=== PATIENT | male | born 1960 | race Caucasian/White ===

== ENCOUNTER → 2019-10-02 | Outpatient (CLI) | payer OTHER ==
[2019-10-02 08:54] LABS: ALT 27 U/L (4-49); AST 26 U/L (17-59); African American GFR (CKD) >90 (>60 ml/min/1.73 sqM); Albumin 4.4 g/dL (3.5-5.0); Albumin/Globulin Ratio 1.3; Alkaline Phosphatase 68 U/L (38-126); Anion Gap 10 mmol/L; Blood Urea Nitrogen 17 mg/dL (9-20); Calcium 9.8 mg/dL (8.4-10.2); Carbon Dioxide 29 mmol/L (22-30); Chloride 103 mmol/L (98-107); Cholesterol 228 mg/dL (<200); Globulin 3.3 g/dL; Glucose 99 mg/dL (74-99); HDL Cholesterol 27 mg/dL (40-60); LDL Cholesterol,Calculated 178 mg/dL (0-99); Non-African American GFR(CKD) 82 (>60 ml/min/1.73 sqM); Potassium 5.1 mmol/L (3.5-5.1); Sodium 142 mmol/L (137-145); Total Protein 7.7 g/dL (6.3-8.2); Triglycerides 117 mg/dL (<150)
== END | disposition home or self-care (01) ==
LOC: MERGE 08:09 → LABWHC1 08:09
PROVIDERS: ATTEND Internal Medicine Interventional Cardiology
DX: E78.2 Mixed hyperlipidemia (principal)
CPT/HCPCS: 36415; 80053; 80061

== ENCOUNTER 2019-10-10 06:35 | Day surgery (SDC) | payer OTHER ==
[2019-10-08 11:36] VITALS: BMI 25.1
[~2019-10-10 06:35] MED LIST: ALPRAZolam 0.25 MG TAB PO PRN; ALPRAZolam 0.5 MG TAB PO PRN; ASPIRIN 325 MG TAB PO STA; NITROGLYCERIN SL TABS 0.4 MG TAB SUBLINGUAL PRN; SODIUM CHLORIDE 0.9% 1,000 ML in EMPTY BAG 1 BAG IV ONE
[2019-10-10 07:08] VITALS: RESP 16; TEMP 97.8
[2019-10-10 07:12] LABS: Basophils % (A) 0 %; Eosinophils # (A) 0.4 k/uL (0-0.7); Eosinophils % (A) 5 %; HCT 52.1 % (39.0-53.0); HGB 18.1 gm/dL (13.0-17.5); Lymphocytes # (A) 1.1 k/uL (1.0-4.8); Lymphocytes % (A) 14 %; MCH 33.3 pg (25.0-35.0); MCHC 34.6 g/dL (31.0-37.0); MCV 96.1 fL (80.0-100.0); Mean Platelet Volume 6.6; Monocytes # (A) 0.6 k/uL (0-1.0); Monocytes % (A) 8 %; Neutrophils # (A) 5.4 k/uL (1.3-7.7); Neutrophils % (A) 72 %; Platelet Count 303 k/uL (150-450); RBC 5.42 m/uL (4.30-5.90); WBC 7.5 k/uL (3.8-10.6)
[2019-10-10] MEDS ORDERED: HEPARIN SODIUM 1,000 UN/ML (10ML VL) ONE (07:30)
[2019-10-10] MEDS ORDERED: VERAPAMIL 2.5 MG/ML 2 ML AMP ONE (07:30)
[2019-10-10] MEDS ORDERED: fentaNYL (PF) 50 MCG/ML 2 ML AMP ONE (07:30)
[2019-10-10] MEDS ORDERED: LIDOCAINE 1% INJ 10MG/ML (20 ML MDV) ONE (07:30)
[2019-10-10] MEDS ORDERED: fentaNYL (PF) 50 MCG/ML 2 ML AMP IV ONE (07:35)
[2019-10-10] MEDS: LIDOCAINE 1% INJ 10MG/ML (20 ML MDV) SQ ONE ×2 (07:39→07:55)
[2019-10-10] MEDS ORDERED: MIDAZOLAM 2 MG/2 ML VIAL IVP ONE (07:41)
[2019-10-10] MEDS ORDERED: IOPAMIDOL-370 100ML BTL INJ ONE ×2 (08:05)
[2019-10-10] MEDS ORDERED: IOPAMIDOL-370 125ML BTL INJ ONE (08:08)
[2019-10-10] MEDS ORDERED: RX INFO: IV CONTRAST WAS GIVEN 1 EACH MISC MISCELLANE PRN (08:27)
[2019-10-10] MEDS ORDERED: SODIUM CHLORIDE 0.9% 1,000 ML IV SCH (08:30)
--- NOTE | 2019-10-10 09:03 | CC ---
CARDIAC CATHETERIZATION REPORT Mr. Bar is a 58-year-old male with known history of coronary artery disease, status post myocardial infarction and stenting done at [facility] in 2016. He received multiple stents at that time as well as stenting of his lower extremities that has not been followed by his dredge pipeman and presented recently with symptoms of chest discomfort and intermittent claudication. In view of his prior history and his presentation, recommendation was made regarding cardiac catheterization. The procedure as well as the risks and the complications were discussed with the patient who is in full understanding and agreement. PROCEDURE: Patient was brought to mobile home laborer in a fasting semi-sedated state after receiving fentanyl Benadryl and achieving moderate conscious sedated state. The right radial artery was cannulized but because of severe vasospasm, could not advance the wire. At that time using Xylocaine anesthesia and 6-Luxembourger sheath was introduced in the left femoral artery. Selective right and left coronary angiography was performed using 6- Luxembourger 4 bend, right and left Janet catheter. Multiple views of the coronary artery including hemiaxial views were obtained. Following that 6-Luxembourger tight pigtail catheter was introduced in the left ventricle and a 30-degree PETERS view of the left ventricle was obtained. Following that, an aortogram in the lower abdomen was obtained. Following that, catheter and sheaths were removed. Hemostasis was obtained with compression of the left groin. There was no immediate complication. Patient was returned to his room in stable condition. FINDING: LEFT MAIN: This is a short size vessel bifurcating in the left circumflex, left anterior descending artery. Left main coronary artery has no evidence of obstructive disease. LEFT ANTERIOR DESCENDING ARTERY: This is a large-sized vessel reaching to the apex with a wraparound apex segment giving rise to a large diagonal branch. The left anterior descending artery at the takeoff of the diagonal branch has a 20% to 30%. The takeoff of the diagonal branch has a 60% to 70% plaque. The rest of the vessel has no high- grade stenosis. LEFT CIRCUMFLEX: This is a nondominant large vessel giving rise to 2 obtuse marginal branches. The first one is large in caliber. The proximal segment of that obtuse marginal branch has a stent that is patent. There is mild diffuse intimal disease of 20% in the vessel without any evidence of high-grade stenosis. RIGHT CORONARY ARTERY: This is a large dominant vessel bifurcating distally PDA and posterolateral segment and branches. The mid segment has multiple stents. The ostium of the right coronary artery has 30% to 40% plaque. The stented segment has mild intimal restenosis of 30%. The rest of the vessel has no high-grade stenosis. LEFT VENTRICULOGRAM: Left ventriculogram was performed in 30-degree PETERS view and revealed inferobasal hypokinesis. Ejection fraction is about 45%. There was no significant mitral regurgitation. AORTOGRAM: Lower abdomen aortogram revealed a patent stent of the left iliac with totally occluded stent of the right iliac with collateral reconstituting the femoral artery proximal to the bifurcation. HEMODYNAMICS: There was no gradient across the aortic valve. The left ventricular end-diastolic pressure was 10-12 mmHg. CONCLUSION: 1. Patent stent to the right coronary artery and to the left circumflex. 2. Mild to moderate triple-vessel coronary artery disease. 3. Mildly impaired left ventricular systolic function. 4. Totally occluded right iliac stent. RECOMMENDATION: We will continue medical therapy with aggressive coronary risk modification. The patient will be evaluated by Dr. Priest for possibility of recanalizing the right iliac stent. Those findings and recommendation were discussed with the patient and his family and they are in full understanding and agreement. MMODL / IJN: [id number] /
[2019-10-10 12:01] VITALS: BP 111/74; PULSE 70
[2019-10-10] MEDS ORDERED: LISINOPRIL 10 MG TAB PO SCH (21:00)
[2019-10-10] MEDS ORDERED: ATORVASTATIN 80 MG TAB PO SCH (21:00)
[2019-10-10] MEDS ORDERED: METOPROLOL SUCCINATE (ER) 50 MG TAB.ER.24H PO SCH (21:00)
[2019-10-11] MEDS ORDERED: ASPIRIN 81 MG PO SCH (09:00)
== END 2019-10-10 14:50 | disposition home or self-care (01) ==
LOC: CATHCVL 06:35
PROVIDERS: ATTEND Internal Medicine Interventional Cardiology
DX: I25.110 Atherosclerotic heart disease of native coronary artery with unstable angina pectoris (principal); T82.897A Other specified complication of cardiac prosthetic devices, implants and grafts, initial encounter; I11.9 Hypertensive heart disease without heart failure; I73.9 Peripheral vascular disease, unspecified; E78.2 Mixed hyperlipidemia; E78.00 Pure hypercholesterolemia, unspecified; I25.2 Old myocardial infarction; F17.210 Nicotine dependence, cigarettes, uncomplicated; Z91.14 Patient's other noncompliance with medication regimen; Z95.5 Presence of coronary angioplasty implant and graft; Z95.820 Peripheral vascular angioplasty status with implants and grafts; Z79.82 Long term (current) use of aspirin; Z79.899 Other long term (current) drug therapy; Z79.02 Long term (current) use of antithrombotics/antiplatelets
CPT/HCPCS: 93458; 85025; C1769 ×3; C1894 ×2; J2250; J2001; J3010; Q9967 ×2

== ENCOUNTER → 2019-12-23 | Outpatient (CLI) | payer OTHER ==
[2019-12-23 18:39] LABS: African American GFR (CKD) 63.7 (60.0-200.0); Albumin 4.6 g/dL (3.80-4.90); Albumin/Globulin Ratio 2.19 (1.60-3.17); Anion Gap 7.3 mmol/L (4.00-12.00); BUN/Creat Ratio 20.71 Ratio (12.00-20.00); Calcium 9.5 mg/dL (8.7-10.3); Carbon Dioxide 26.7 mmol/L (21.6-31.8); Chol/HDL Ratio 3.71; Globulin 2.1 g/dL (1.6-3.3); LDL Cholesterol,Calculated 106.6 mg/dL (0.0-131.0); Potassium 4.9 mmol/L (3.5-5.5); Total Bilirubin 0.7 mg/dL (0.3-1.2); Total Protein 6.7 g/dL (6.2-8.2); VLDL Calculation 15.4 mg/dL (5.00-40.00)
== END | disposition home or self-care (01) ==
LOC: LABWHC1 12:14
PROVIDERS: ATTEND Internal Medicine Interventional Cardiology
DX: U07.1 COVID-19 (principal); E78.2 Mixed hyperlipidemia
CPT/HCPCS: 36415; 80053; 80061; 87635

== ENCOUNTER 2019-12-25 06:11 | Day surgery (SDC) | payer OTHER ==
[2019-12-24 08:37] VITALS: BMI 26.7
[~2019-12-25 06:11] MED LIST changes: -ALPRAZolam 0.5 MG TAB PO PRN; -ASPIRIN 325 MG TAB PO STA; -NITROGLYCERIN SL TABS 0.4 MG TAB SUBLINGUAL PRN
[2019-12-25 06:45] LABS: Basophils % (A) 1 %; Eosinophils # (A) 0.5 k/uL (0-0.7); Eosinophils % (A) 7 %; HCT 49.9 % (39.0-53.0); HGB 16.4 gm/dL (13.0-17.5); Lymphocytes # (A) 1.3 k/uL (1.0-4.8); Lymphocytes % (A) 19 %; MCH 32.5 pg (25.0-35.0); MCHC 32.8 g/dL (31.0-37.0); MCV 99.2 fL (80.0-100.0); Mean Platelet Volume 6.7; Monocytes # (A) 0.5 k/uL (0-1.0); Monocytes % (A) 7 %; Neutrophils # (A) 4.5 k/uL (1.3-7.7); Neutrophils % (A) 64 %; Platelet Count 224 k/uL (150-450); RBC 5.03 m/uL (4.30-5.90); RDW 13.2 % (11.5-15.5)
[2019-12-25 06:57] LABS: Potassium 4.2 mmol/L (3.5-5.1)
[2019-12-25] MEDS ORDERED: ASPIRIN 325 MG TAB PO ONE (07:00)
[2019-12-25] MEDS ORDERED: MIDAZOLAM 2 MG/2 ML VIAL IV ONE (07:38)
[2019-12-25] MEDS ORDERED: LIDOCAINE 1% INJ 10MG/ML (20 ML MDV) SQ ONE (07:39)
[2019-12-25] MEDS: HEPARIN SODIUM 1,000 UN/ML (10ML VL) IV ONE ×2 (07:44→08:01)
[2019-12-25] MEDS ORDERED: CLOPIDOGREL 75 MG TAB PO ONE (08:42)
[2019-12-25] MEDS ORDERED: IOPAMIDOL-250 100ML BTL INTRAARTER ONE (08:43)
[2019-12-25] MEDS ORDERED: SODIUM CHLORIDE 0.9% 1,000 ML in EMPTY BAG 1 BAG IV SCH (09:00)
[2019-12-25] MEDS ORDERED: CLOPIDOGREL 75 MG TAB PO SCH (09:00)
--- NOTE | 2019-12-25 09:14 | P.PCN ---
Date of Procedure: 12/25/19 Operative Findings: PERCUTANEOUS PERIPHERAL ARTERIAL INTERVENTION Performing physician: Ciro Priest MD, [facility] Procedure performed: 1. Successful stenting of the right common iliac artery using 8.0 x 59 mm and 9.0 x 29 mm Omnilink balloon expandable stents with an excellent angiographic results and reduction of stenosis from 100% to 0% 2. Intravascular ultrasound (IVUS) of the aorta, right common iliac artery, and right external iliac artery 3. Selective angiogram of the right common iliac artery, external iliac artery, and common femoral artery Indication: This is a very pleasant 59-year-old gentleman with coronary artery disease as well as peripheral arterial disease who underwent in the past stenting of the right and left common iliac arteries, performed in [facility], was experi encing right lower extremities intermittent claudication and underwent an angiogram and that revealed occluded right common iliac artery which seems to be in-stent occlusion. He was brought today to undergo a SHOTGUN SHELL ASSEMBLY MACHINE OPERATOR. Approach: Right common femoral artery Complication: None Level of sedation: Moderate with a sedation length of 62 minutes Procedure description: After obtaining an informed consent the patient was brought to the cardiac confectionery laboratory manager. The right common femoral artery was cannulated using micropuncture technique, the micropuncture wire passed easily then I placed the micropuncture sheath over the micropuncture wire was subsequently I did exchange the micropuncture sheath into a 23 cm bright tip 6-Cayman Islander sheath using an 035 wire and that wire was super core wire. At that point anticoagulation was initiated using heparin. At the beginning of the procedure the patient was given a total of 5000 use of heparin and at the middle of the procedure additional 3000 use of heparin given with continuous ACT monitoring throughout the procedure. 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 The CXR I was advanced over the wire to the aorta were I did an aortogram to prove that I was in the true lumen. Subsequently I did exchange my 035 wire into an 014 Hi-[address] wire using an 035 CXR catheter. I did perform intravascular ultrasound of the aorta as well as a right common iliac artery and right external iliac artery. The ultrasound of the right common iliac artery revealed chronic thrombus with the stent being slightly undersized. The ultrasound of the right external iliac artery showed mild plaque without any flow-limiting lesions. Also by IVUS I was able to obtain an diameter of the right common iliac artery around 8.5 mm. Because of that I did balloon angioplasty in the beginning using 6 mm balloon and subsequently I placed 8 mm x 59 mm Omnilink balloon expandable stent where the stent was positioned under fluoroscopy guidance and it was deployed under 16 gal. The following angiogram showed an area distal to the stent seems to be hazy and I was concerned about dissection. IVUS was applied again and indeed did reveal large dissection distal to the distal edge of the stent. I decided to cover that with the stent and I decided to place the stent just above the take off of the right internal iliac artery. At that point I deployed 9.0 x 29 mm another Omnilink balloon expandable stent where the stent again was positioned under fluoroscopy guidance was few millimeter overlap between the stent and the previously stents. I deployed the second stent under 16 gal as well. The area of overlap between the 2 stents was dilated using the 9 mm balloon. Then the previous/first the stent was also postdilated using the 9 mm balloon. The final angiogram showed excellent angiographic results and the procedure was completed without any complication After that I did exchange my 23 cm 6-Cayman Islander sheath into an 11 cm 6-Cayman Islander sheath using 035 wire. By the end I did selective right common femoral artery angiogram. The procedure was completed without any complication Postprocedure management: 1. Consider oral anticoagulation and stented off Plavix in view of the patient previously occluded the iliac stent 2. Aggressive cholesterol control 3. Follow-up with Dr. Rosen
--- NOTE | 2019-12-25 09:58 | IR ---
Fluoroscopy HISTORY: Peripheral vascular occlusive disease 12.1 minutes fluoroscopy time supplied to the referring clinician. 389 intraoperative C-arm images d ocument the procedure. See dictated report from cardiology.
[2019-12-25] MEDS ORDERED: LISINOPRIL 10 MG TAB PO SCH (21:00)
[2019-12-25] MEDS ORDERED: METOPROLOL SUCCINATE (ER) 50 MG TAB.ER.24H PO SCH (21:00)
[2019-12-25] MEDS ORDERED: ATORVASTATIN 80 MG TAB PO SCH (21:00)
--- NOTE | 2019-12-26 07:25 | P.DS ---
Providers Date of admission: December 242019 Attending physician: Ciro Priest Primary care physician: Suresh [facility] Course: This is a pleasant 59-year-old gentleman who underwent yesterday successful crossing chronic total occlusion of the right iliac along with successful stenting with an excellent angiographic results and without any complication from right groin approach. The patient was seen this morning. He is asymptomatic. He is going to be discharged home. He is going to be discharged on dual antiplatelet therapy and statin. Plan - Discharge Summary Discharge Rx Participant: No New Discharge Prescriptions: New Clopidogrel [Plavix] 75 mg PO DAILY #90 tab Continue Lisinopril [Zestril] 10 mg PO HS Metoprolol Succinate [Toprol XL] 50 mg PO HS Atorvastatin [Lipitor] 80 mg PO HS Aspirin [Adult Low Dose Aspirin EC] 81 mg PO DAILY Discharge Medication List Aspirin [Adult Low Dose Aspirin EC] 81 mg PO DAILY 10/08/19 [History] Atorvastatin [Lipitor] 80 mg PO HS 10/08/19 [History] Lisinopril [Zestril] 10 mg PO HS 10/08/19 [History] Metoprolol Succinate [Toprol XL] 50 mg PO HS 10/08/19 [History] Clopidogrel [Plavix] 75 mg PO DAILY #90 tab 12/26/19 [Rx] Follow up Appointment(s)/Referral(s): Ciro Priest MD [STAFF PHYSICIAN] - 1 Week
[2019-12-26 07:36] LABS: Basophils % (A) 0 %; Eosinophils # (A) 0.3 k/uL (0-0.7); Eosinophils % (A) 4 %; HCT 47.8 % (39.0-53.0); HGB 15.6 gm/dL (13.0-17.5); Lymphocytes # (A) 0.9 k/uL (1.0-4.8); Lymphocytes % (A) 11 %; MCH 32.5 pg (25.0-35.0); MCHC 32.6 g/dL (31.0-37.0); MCV 99.9 fL (80.0-100.0); Mean Platelet Volume 6.5; Monocytes # (A) 0.6 k/uL (0-1.0); Monocytes % (A) 8 %; Neutrophils # (A) 6.3 k/uL (1.3-7.7); Neutrophils % (A) 75 %; Platelet Count 201 k/uL (150-450); RBC 4.78 m/uL (4.30-5.90); RDW 13.2 % (11.5-15.5); WBC 8.4 k/uL (3.8-10.6)
[2019-12-26 08:02] LABS: African American GFR (CKD) >90 (>60 ml/min/1.73 sqM); Anion Gap 4 mmol/L; Blood Urea Nitrogen 17 mg/dL (9-20); Carbon Dioxide 25 mmol/L (22-30); Chloride 107 mmol/L (98-107); Glucose 89 mg/dL (74-99); Non-African American GFR(CKD) >90 (>60 ml/min/1.73 sqM); Potassium 4.5 mmol/L (3.5-5.1); Sodium 136 mmol/L (137-145)
[2019-12-26 08:43] VITALS: BP 116/69; PULSE 77; RESP 16; TEMP 97
[2019-12-26] MEDS ORDERED: CLOPIDOGREL 75 MG TAB PO SCH (09:00)
[2019-12-26] MEDS ORDERED: ASPIRIN 81 MG PO SCH (09:00)
== END 2019-12-26 09:04 | disposition home or self-care (01) ==
LOC: CATHCVL 06:11 → 3SCARD 12:19 → CATHCVL 12-26 09:04
PROVIDERS: ATTEND Internal Medicine Interventional Cardiology
DX: I74.5 Embolism and thrombosis of iliac artery (principal); I70.213 Atherosclerosis of native arteries of extremities with intermittent claudication, bilateral legs; I25.10 Atherosclerotic heart disease of native coronary artery without angina pectoris; I10 Essential (primary) hypertension; E78.5 Hyperlipidemia, unspecified; F17.210 Nicotine dependence, cigarettes, uncomplicated; Z79.82 Long term (current) use of aspirin; Z79.899 Other long term (current) drug therapy
CPT/HCPCS: 37221; 37252; 37253; 80051; 80048; 85025 ×2; C1769 ×7; C1894 ×2; C1876; C1753; C1725; J2250; J2001; J1644; Q9966

== ENCOUNTER → 2020-01-01 | Outpatient (CLI) | payer OTHER ==
--- NOTE | 2020-01-01 09:10 | CT ---
EXAMINATION TYPE: CT abdomen wo/w con DATE OF EXAM: 01/01/2020 COMPARISON: Non at this institution. HISTORY: Prior abnormal studies, renal cyst per order. CT DLP: 1480 mGycm, Automated Exposure Control for Dose Reduction was Utilized. CONTRAST: CT scan of the abdomen is performed with oral and without and with IV Contrast, patient injected with 100 mL of Isovue 300. FINDINGS: LUNG BASES: Coronary artery calcification or more likely stent in the RCA distribution is noted. LIVER/GB: Subcentimeter low dense lesion periphery right hepatic lobe axial image 17 series 7 to smal l to further characterize presumed benign. PANCREAS: No significant abnormality is seen. SPLEEN: No significant abnormality is seen. ADRENALS: No significant abnormality is seen. KIDNEYS: Noncontrast images show no renal calculi bilaterally. Postcontrast images show cortical medu llary uptake and excretion from the left kidney without hydronephrosis. Few small simple appearing pa rapelvic cyst lower pole level centrally left kidney noted. No concerning solid or cystic renal mass. Right kidney shows marked cortical thinning due to severe pyelocaliectasis. There is some cortical up take but nonvisualized excretion. Right ureter not well identified but is not dilated. No significant local mass effect on the adjacent pancreatic head and duodenal sweep along with the IVC and small an d large bowel loops in the right mid abdomen. There is mass effect along the inferior margin of the l iver. BOWEL: Oral contrast only reaches distal ileal loops in the left abdomen. No suspicious small or larg e bowel dilatation. LYMPH NODES: No greater than 1cm abdominal lymph nodes are appreciated. OSSEOUS STRUCTURES: Is bilateral pars defect with grade 1 anterolisthesis L5 on S1. Fairly severe dis c space narrowing with vacuum disc phenomenon and endplate sclerosis at this level. Mild multilevel d isc space narrowing. Mild multilevel anterior and lateral spurring in the spine. Facet arthropathy lo wer lumbar levels. OTHER: There is moderate to severe mixed plaque in the abdominal aorta with slight ectasia distally u p to 2.9 cm AP diameter axial image 44 series 7 and sagittal image 60 series 10. There are bilateral common iliac arterial stent graft which do show some noncalcified intraluminal plaque but are presume d patent as there is flow in the distal common iliac artery is noted past use. IMPRESSION: 1. Severe right-sided hydronephrosis without hydroureter. Etiologies include UPJ obstruction or steno sis and should be correlated clinically with old outside studies. Presumed diminished function to the right kidney, this could be better evaluated with nuclear medicine study if has not been performed. Significant local mass effect noted as detailed above.
== END | disposition home or self-care (01) ==
LOC: RADCTMAIN 07:42
PROVIDERS: ATTEND Urology
DX: N13.30 Unspecified hydronephrosis (principal); N28.1 Cyst of kidney, acquired; R16.0 Hepatomegaly, not elsewhere classified
CPT/HCPCS: 74170; Q9967

== ENCOUNTER → 2021-09-06 | Outpatient (CLI) | payer OTHER ==
--- NOTE | 2021-09-06 09:08 | CTL ---
EXAMINATION TYPE: CT Low Dose Lung DATE OF EXAM ORDERED: 09/06/2021 HISTORY: 60-year-old male Personal history of tobacco use. Lung cancer screening CT DLP: 71.[address] CTDI: 2.10 mGy Automated exposure control for dose reduction was used. SCREENING VISIT: Baseline COMPARISON: CT abdomen 01/01/2020 TECHNIQUE: Low dose computed tomography scan was performed through the chest with coronal and sagitta l and MIP reconstructions. CT DIAGNOSTIC QUALITY: Satisfactory FINDINGS: The heart is normal size without pericardial effusion. Circumflex and RCA coronary artery calcificati ons are noted. Minimal scattered LAD coronary artery calcifications. Ectatic ascending aorta 3.8 cm. Conventional arch vessel branching anatomy. Ectatic upper descending thoracic aorta at 3.2 cm. No thoracic lymphadenopathy by CT size criteria. 6 mm inferior lingular pulmonary nodule, axial image 207. 4 mm anterior left upper lobe pulmonary nodule, axial image 90. Benign calcified granuloma left lower lobe, axial image 24. 6 mm left mid lung pulmonary nodule, axial image 124. 3 mm peripheral right mid lung pulmonary nodule, axial image 149. Mild diffuse bronchial wall thickening. Minimal underlying centrilobular emphysema. Minimal biapical pleural-parenchymal scarring. No consolidation or pleural effusion. Partially visualized severe right-sided hydronephrosis, unchanged from 01/01/2020. Bones: Scattered mild degenerative disc disease and small endplate Schmorl's nodes. IMPRESSION: 1. LungRADS Category 3 (Probably benign, 1-2% chance of malignancy); a few scattered 6 mm and smaller pulmonary nodules on baseline screening. Six-month follow-up low-dose CT chest. 2. COPD with minimal emphysema. Coronary artery disease. 3. Partially visualized severe right-sided hydronephrosis as was present on 01/01/2020. RECOMMENDATION: Lung-Rad 3 Probably Benign: 6 month follow-up LDCT. S Modifier (other clinically significant findings): Appropriate clinical management for patient's known severe right-sided hydronephrosis.
== END | disposition home or self-care (01) ==
LOC: RADCTMAIN 07:00
PROVIDERS: ATTEND Internal Medicine Hematology & Oncology
DX: Z12.2 Encounter for screening for malignant neoplasm of respiratory organs (principal); J43.9 Emphysema, unspecified; N13.30 Unspecified hydronephrosis; Z87.891 Personal history of nicotine dependence
CPT/HCPCS: 71271

== ENCOUNTER → 2022-05-05 | Outpatient (CLI) | payer OTHER ==
--- NOTE | 2022-05-05 09:27 | CT ---
EXAMINATION TYPE: CT chest wo con CT DLP: 326 mGycm, Automated exposure control for dose reduction was used. DATE OF EXAM: 05/05/2022 9:04 AM COMPARISON: CT chest 09/06/2021 CLINICAL INDICATION:Male, 61 years old with history of R91.1 SOLITARY PULMONARY NODULE; PHH, lung nod ule TECHNIQUE: Multiple axial images were obtained through the chest. Sagittal and coronal reformats were created for review. Contrast used: none. Oral contrast used: none. FINDINGS: LUNGS/ PLEURA: Lingular opacity has more linear atelectasis appearance now on today's exam. ( Series 4 image 46) Left upper lobe nodule not definitively visualized. Stable left lower lobe 4 mm pulmonary nodule (series 4 image 29) No focal consolidation, pneumothorax or pleural effusion. AIRWAY: Patent and unremarkable. HEART: Size within normal limits. Moderate coronary artery atherosclerosis most pronounced in the lef t circumflex artery and right coronary. MEDIASTINUM: No gross evidence of adenopathy. VASCULATURE: No aortic aneurysm. MUSCULOSKELETAL: No acute osseous abnormalities, multilevel disc degeneration changes with straighten ing of the spine. Facet joint arthropathy seen throughout the spine. SOFT TISSUES/LYMPH NODES: Unremarkable. LOWER NECK: No significant findings. UPPER ABDOMEN: Enlarged right cystic disease in the kidney with cortical thinning. Dominant cyst kevin uring up to 14.0 cm. IMPRESSION: 1. Stable and/or resolving pulmonary nodules seen on prior. No suspicious or enlarging pulmonary nod ules. Consider follow-up in one year. 2. Moderate coronary artery atherosclerosis.
== END | disposition home or self-care (01) ==
LOC: RADCTMAIN 08:48
PROVIDERS: ATTEND Internal Medicine Hematology & Oncology
DX: R91.1 Solitary pulmonary nodule (principal)
CPT/HCPCS: 71250

== ENCOUNTER 2023-06-28 08:42 | Day surgery (SDC) | payer OTHER ==
[~2023-06-28 08:42] MED LIST changes: -ALPRAZolam 0.25 MG TAB PO PRN
[2023-06-28] MEDS ORDERED: SODIUM CHLORIDE 0.9% 1,000 ML IV ONE (09:30)
[2023-06-28 09:33] LABS: Basophils % (A) 0 %; Eosinophils # (A) 0.4 k/uL (0-0.7); Eosinophils % (A) 5 %; HCT 51.4 % (39.0-53.0); HGB 17.2 gm/dL (13.0-17.5); Lymphocytes # (A) 1.1 k/uL (1.0-4.8); Lymphocytes % (A) 13 %; MCH 33.2 pg (25.0-35.0); MCHC 33.6 g/dL (31.0-37.0); Mean Platelet Volume 7.3; Monocytes # (A) 0.6 k/uL (0-1.0); Monocytes % (A) 8 %; Neutrophils # (A) 6.3 k/uL (1.3-7.7); Neutrophils % (A) 73 %; Platelet Count 186 k/uL (150-450); RBC 5.19 m/uL (4.30-5.90); RDW 12.8 % (11.5-15.5); WBC 8.6 k/uL (3.8-10.6)
[2023-06-28 09:48] LABS: African American GFR (CKD) >90 (>60 ml/min/1.73 sqM); Anion Gap 9 mmol/L; Blood Urea Nitrogen 24 mg/dL (9-20); Calcium 9.8 mg/dL (8.4-10.2); Carbon Dioxide 25 mmol/L (22-30); Chloride 106 mmol/L (98-107); Glucose 81 mg/dL (74-99); Non-African American GFR(CKD) 80 (>60 ml/min/1.73 sqM); Sodium 140 mmol/L (137-145)
[2023-06-28 09:52] LABS: Potassium 4.7 mmol/L (3.5-5.1)
[2023-06-28] MEDS ORDERED: MIDAZOLAM 2 MG/2 ML VIAL IVP ONE ×3 (12:34→13:05)
[2023-06-28] MEDS ORDERED: LIDOCAINE 1% INJ 10MG/ML (30 ML VIAL-PF) SQ ONE (12:34)
[2023-06-28] MEDS ORDERED: HYDROmorphone 0.5 MG/0.5 ML SYRINGE IVP ONE (12:35)
[2023-06-28] MEDS ORDERED: HEPARIN SODIUM 1,000 UN/ML (10ML VL) ONE (12:36)
[2023-06-28] MEDS ORDERED: HEPARIN SODIUM 1,000 UN/ML (10ML VL) IVP ONE (12:39)
[2023-06-28] MEDS ORDERED: CLOPIDOGREL 75 MG TAB ONE (13:08)
[2023-06-28] MEDS ORDERED: CLOPIDOGREL 75 MG TAB PO ONE (13:11)
[2023-06-28] MEDS ORDERED: NALOXONE 0.4 MG/ML 1 ML VIAL IVP PRN (13:46)
--- NOTE | 2023-06-28 13:59 | P.PCN ---
Date of Procedure: 06/28/23 Operative Findings: PERCUTANEOUS PERIPHERAL INTERVENTION Performing physician Ciro Priest M.D. Procedure performed 1. Successful balloon angioplasty and stenting of the right common iliac artery using a 9 mm x 29 mm balloon expandable stent with a good angiographic results 2. Adjunctive use of drug-coated balloon and intravascular imaging and gradient across the right common iliac artery 3. Right common iliac artery angiogram in the right common femoral artery angiogram and ultrasound guided access of the right common femoral are Indication Right lower extremity intermittent claudication in this 62-year-old gentleman who underwent an angiogram and that revealed occluded right iliac artery. In the past he underwent stenting of the right common iliac artery proximally and distally. Approach Right common femoral artery Complications None Level of sedation Moderate with a sedation time of 71 minutes Procedure description After obtaining an informed consent the patient was brought to the cardiac feed mill lab technician. The right common femoral artery was cannulated using puncture technique under ultrasound guidance the micropuncture wire passed easily then I placed a 6-Nigerian 23 cm bright tip sheath at the right common femoral artery. The sheath was advanced under fluoroscopy guidance to the distal edge of the right iliac stent. At that point anticoagulation was initiated using heparin with continuous ACT monitoring. Subsequently I did right iliac angiogram. 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 Subsequently I did inject contrast through the catheter after the catheter was advanced all the way to distal abdominal aorta to prove that I was in the true lumen. Then I did exchange my 035 stiff Glidewire into 014 wire. Intravascular ultrasound was performed and showed that I was in the toe lumen all the way. The diameter of the right iliac was about 9 mm. There is no evidence of any stent fracture. There is no evidence of any stent opposition or under expansion. I decided in an attempt to avoid adding any layer of stent to do balloon angioplasty only. I did balloon angioplasty using 9 mm regular balloon and subsequently 9 mm drug-coated balloon. The very proximal edge of the stent appeared to be still have intermediate to severe disease documented to be flow- limiting by gradient came in to be about 44 mmHg. The mid and distal edge/portions of the stent where looking good. At this point and because I did balloon angioplasty again using a 9 mm balloon was no good angiographic results of the proximal edge of the stent I decided to out and other stent so I deployed 9 mm x 29 mm balloon expandable stent where the stent was positioned under fluoroscopy guidance and deployed under fluoroscopy guidance. The stent balloon was used to balloon the stent again in the mid and distal portion. Final angiogram was performed and showed a good angiographic results and the procedure was completed was no complication. At that point the long/23 cm sheath was exchanged over an 035 wire into 11 cm 6-Nigerian sheath and the selective right common femoral artery angiogram was performed by the end. The procedure was completed was no complication Postprocedure management 1. On this patient I would consider triple therapy including dual antiplatelet therapy along with low-dose anticoagulation 2. Aggressive cholesterol control 3. Risk factors modification 4. Follow-up with the patient
[2023-06-28] MEDS ORDERED: SODIUM CHLORIDE 0.9% 1,000 ML in EMPTY BAG 1 BAG IV SCH (14:00)
--- NOTE | 2023-06-28 14:35 | IR ---
EXAMINATION TYPE: IR stent intravas non coronary DATE OF EXAM: 06/28/2023 COMPARISON: NONE HISTORY: Fluoroscopy time. Fluoroscopy was provided to the referring clinician.
[2023-06-28] MEDS ORDERED: METOPROLOL SUCCINATE (ER) 50 MG TAB.ER.24H PO SCH (21:00)
[2023-06-28] MEDS ORDERED: EZETIMIBE 10 MG TAB PO SCH (21:00)
[2023-06-28] MEDS ORDERED: ASPIRIN 81 MG PO SCH (21:00)
[2023-06-28] MEDS ORDERED: DULoxetine HCL 20 MG CAPSULE.DR PO SCH (21:00)
[2023-06-28] MEDS ORDERED: ATORVASTATIN 80 MG TAB PO SCH (21:00)
[2023-06-28] MEDS ORDERED: lisinopriL 10 MG TAB PO SCH (21:00)
[2023-06-29 04:59] VITALS: RESP 17
[2023-06-29] MEDS ORDERED: CLOPIDOGREL 75 MG TAB PO SCH (09:00)
[2023-06-29 09:09] VITALS: BP 150/78; PULSE 70; TEMP 98.4
[2023-06-29 09:57] LABS: African American GFR (CKD) 82 (>60 ml/min/1.73 sqM); Non-African American GFR(CKD) 71 (>60 ml/min/1.73 sqM)
== END 2023-06-29 10:04 | disposition home or self-care (01) ==
LOC: CATHCVL 08:42 → 3SCARD 13:37 → CATHCVL 06-29 10:04
PROVIDERS: ATTEND Internal Medicine Interventional Cardiology
DX: I25.10 Atherosclerotic heart disease of native coronary artery without angina pectoris (principal); I73.9 Peripheral vascular disease, unspecified; I74.5 Embolism and thrombosis of iliac artery; I10 Essential (primary) hypertension; E78.2 Mixed hyperlipidemia; F17.210 Nicotine dependence, cigarettes, uncomplicated; Z79.82 Long term (current) use of aspirin; Z79.899 Other long term (current) drug therapy
CPT/HCPCS: 37221; 76937; 37252; 80048; 82565; 85025; C1769 ×4; C1894 ×2; C1876; C1753; C2623; J2250; J2001; J1644; J1170

== ENCOUNTER → 2024-05-15 | Outpatient (CLI) | payer OTHER ==
--- NOTE | 2024-05-15 12:49 | CT ---
EXAMINATION TYPE: CT chest wo con CT DLP: 585 mGycm, Automated exposure control for dose reduction was used. DATE OF EXAM: 05/15/2024 12:33 PM COMPARISON: CT chest 05/10/2023, 05/05/2022, CT low-dose lung 09/06/2021, CT abdomen 01/01/2020 CLINICAL INDICATION:Male, 63 years old with history of R91.1 lung nodule; PHH, Hx lung nodules TECHNIQUE: Multiple axial images were obtained through the chest without IV contrast. Lack of IV or o ral contrast limits evaluation of solid and hollow organ viscera. . Coronal and sagittal reformats re viewed. FINDINGS: LUNGS/ PLEURA: No pleural effusion, pneumothorax, focal consolidation. Few stable pulmonary nodules w ith exams including a left lower lobe 4 mm pulmonary nodule (series 3, image 29). Previously 4 mm. Li ngular 5 mm pulmonary nodule (series 3, image 47), previously 6 mm. Left lower lobe 4 mm pulmonary no dule (series 3, image 52), previously 4 mm. AIRWAY: Patent and unremarkable.. HEART: Size within normal limits. No sizable pericardial effusion. Small coronary artery calcificatio ns. MEDIASTINUM: No gross evidence of adenopathy. VASCULATURE: No aortic aneurysm. MUSCULOSKELETAL: No acute osseous abnormalities SOFT TISSUES/LYMPH NODES: Unremarkable. LOWER NECK: No significant findings. UPPER ABDOMEN: Few subcentimeter hypodense foci are redemonstrated within the liver which are too sma ll to accurately characterize but likely represent cysts. Redemonstration of partially visualized sev ere right hydronephrosis with chronic cortical thinning. IMPRESSION: 1. Few stable pulmonary nodules measuring up to 5 mm. No new or enlarging pulmonary nodules. 2. Partial visualization of chronic severe right hydronephrosis redemonstrated. [facility], , 05/15/2024 12:47 PM
== END | disposition home or self-care (01) ==
LOC: RADCTMAIN 10:59
PROVIDERS: ATTEND Internal Medicine Hematology & Oncology
DX: R91.1 Solitary pulmonary nodule
CPT/HCPCS: 71250